=== PATIENT | female | born 1995 | race Caucasian/White ===

== ENCOUNTER 2022-07-16 11:33 | Outpatient (REF) | payer OTHER, SELFPAY ==
[2022-07-16 14:13] LABS: Alanine Aminotransferase 22 U/L (0-31); Albumin Level 4.2 g/dL (3.5-5.0); Alkaline Phosphatase 50 U/L (39-117); Anion Gap 13 (12-20); Aspartate Amino Transferase 20 U/L (5-31); Bilirubin Total 0.5 mg/dL (0.0-1.0); Blood Urea Nitrogen 10 mg/dL (9-16); Calcium 9.2 mg/dL (8.4-10.2); Carbon Dioxide 22 mmol/L (22-29); Chloride 107 mmol/L (96-108); Estimated Glomerular Filt Rate > 60; Glucose Random 85 mg/dL (60-115); Potassium 4.4 mmol/L (3.3-5.1); Sodium 138 mmol/L (135-145); Total Protein 6.8 g/dL (6.5-8.0)
[2022-07-16 14:45] LABS: Folate 4.2 ng/mL (> or = 4.0); TSH reflex Free T4 2.07 uIU/mL (0.32-4.0); Vitamin B12 361 pg/mL (200-900); Vitamin D 25-OH Total 10.1 ng/mL (>30)
== END 2022-07-16 11:34 | disposition home or self-care (01) ==
LOC: HO.LAB 11:33
PROVIDERS: PCP Internal Medicine; Visit Provider Nurse Practitioner Family
DX: Z13.21 Encounter for screening for nutritional disorder (principal); Z13.29 Encounter for screening for other suspected endocrine disorder
CPT/HCPCS: 36415; 80053; 82306; 82607; 82746; 84443

== ENCOUNTER 2022-08-06 14:31 | Emergency (ER) | payer OTHER, SELFPAY ==
--- NOTE | 2022-08-06 14:34 | ED.GENADULT ---
HPI - General Adult General Chief complaint: Anxiety <NICKI Lozoya - Last Filed: 08/06/22 15:02> Stated complaint: Numb hands/Lightheaded <NICKI Lozoya - Last Filed: 08/06/22 15:02> Time Seen by Provider: 08/06/22 15:41 <NICKI Lozoya - Last Filed: 08/06/22 15:02> History of Present Illness HPI narrative: patient with history of anxiety complains of anxiety attack that included episode of hyperventilation, tingling in fingertips feeling like her heart was racing, feeling lightheaded She feels somewhat better but still feels anxious, never had chest pain never fainted never had any weakness or difficulty speaking or walking <NICKI Hernández - Last Filed: 08/10/22 19:40> Related Data Home medications: Home Medications Medication Instructions Recorded Confirmed norethindrone acetate 1 mg-ethinyl 1 tab PO DAILY 07/16/22 07/16/22 estradiol 20 mcg tablet (Junel) Previous Rx's Medication Instructions Recorded buspirone 5 mg tablet 5 mg PO BID #60 tabs 07/16/22 cholecalciferol (vitamin D3) 50 50 mcg PO DAILY #30 caps 07/16/22 mcg (2,000 unit) capsule lorazepam 1 mg tablet (Ativan) 1 mg PO BID PRN anxiety #7 tabs 08/06/22 <NICKI Lozoya - Last Filed: 08/06/22 15:02> Allergies/adverse reactions: Allergies Allergy/AdvReac Type Severity Reaction Status Date / Time amoxicillin [AMOXICILLIN] Allergy Unknown UNKNOWN, Verified 07/16/22 11:07 rash <NICKI Lozoya - Last Filed: 08/06/22 15:02> PMF Past Medical History Source: nursing notes reviewed <NICKI Hernández - Last Filed: 08/10/22 19:40> Medical History: Medical History (Updated 08/06/22 @ 16:28 by NICKI Hernández) Anxiety Elevated blood-pressure reading without diagnosis of hypertension <NICKI Lozoya - Last Filed: 08/06/22 15:02> Family History Family History: Family History (Updated 07/16/22 @ 11:10 by PATRICIA Lord) Father Esophageal cancer Mother No problems noted. Sister Uterine fibroid <NICKI Lozoya - Last Filed: 08/06/22 15:02> Social History Social History: Social History (Updated 07/16/22 @ 11:11 by PATRICIA Lord) Household Members: Spouse Housing: Apartment Alcohol intake: current Alcohol intake frequency: a few times a month Alcohol type: hard liquor Patient Tobacco Use Status: Never used Tobacco Tobacco use type: Cigarette e-Cigarette/Vaping Use: Never Used Second Hand Smoke Exposure: No Advance Directives: No Advance Directives Information Provided: No service: No Current occupational status: employed <NICKI Lozoya - Last Filed: 08/06/22 15:02> Physical Exam ED Vital Signs: Vital Signs - 24 hr 08/06/22 14:59 Temperature 98 F Pulse Rate 98 Respiratory Rate 18 Blood Pressure 163/93 H Pulse Oximetry 98 Oxygen Delivery Method Room Air BMI result Body Mass Index 44.1 <NICKI Lozoya - Last Filed: 08/06/22 15:02> Vital Signs - 24 hr 08/06/22 14:59 Temperature 98 F Pulse Rate 98 Respiratory Rate 18 Blood Pressure 163/93 H Pulse Oximetry 98 Oxygen Delivery Method Room Air BMI result Body Mass Index 44.1 <NICKI Hernández - Last Filed: 08/10/22 19:40> General appearance no acute distress cooperative Head is normocephalic atraumatic Pupils equal round reactive to light extraocular motions are intact Pharynx clear without redness swelling or exudate membranes are moist Neck is supple The chest is clear to auscultation bilateral full symmetric equal breath sounds Heart no murmur rate and rhythm regular Abdomen soft nontender Extremities full range of motion x4 Neuro gait and balance are normal, interaction comprehension and expression are normal, cranial nerves 2-12 intact as tested no facial asymmetry, cerebellar exam is normal, motor is 5/5 x4 and sensation intact and symmetrical <NICKI Hernández - Last Filed: 08/10/22 19:40> Course Course Course Narrative: RME--27-year-old female with a past medical history of anxiety, presenting to the ED c/o panic attack x couples hours with assoc hand parathesias, SOB, CP, & lightheadedness. States took her BP at home and was 173/113. Reports sx improvement at present with mild residual lightheadedness Took Buspirone this AM, started about 1 mos ago EKG ordered <NICKI Lozoya - Last Filed: 08/06/22 15:02> RME--27-year-old female with a past medical history of anxiety, presenting to the ED c/o panic attack x couples hours with assoc hand parathesias, SOB, CP, & lightheadedness. States took her BP at home and was 173/113. Reports sx improvement at present with mild residual lightheadedness Took Buspirone this AM, started about 1 mos ago EKG ordered Patient with history of anxiety had an episode of hyperventilation and anxiety that is typical of prior, EKG was done which was a normal sinus rhythm, rate of 91, intervals AR interval normal QRS duration normal QT normal, there are no ST acute changes no acute ischemic changes Patient was given Ativan with very good improvement and felt better and was discharged, she has no suicidal homicidal thoughts, no hearing voices, after Ativan tingling palpitations all resolved <NICKI Hernández - Last Filed: 08/10/22 19:40> Medications Administered Discontinued Medications Generic Name Dose Route Start Last Admin Trade Name Freq PRN Reason Stop Dose Admin Lorazepam 1 mg 08/06/22 15:47 08/06/22 15:56 Lorazepam 1 Mg Tablet PO 08/06/22 15:48 1 mg ONCE ONE Administration <NICKI Lozoya Last Filed: 08/06/22 15:02> Medications Administered Discontinued Medications Generic Name Dose Route Start Last Admin Trade Name Freq PRN Reason Stop Dose Admin Lorazepam 1 mg 08/06/22 15:47 08/06/22 15:56 Lorazepam 1 Mg Tablet PO 08/06/22 15:48 1 mg ONCE ONE Administration <NICKI Hernández - Last Filed: 08/10/22 19:40> Discharge Plan Discharge Clinical Impression: Anxiety <NICKI Lozoya Last Filed: 08/06/22 15:02> Patient Disposition: Home, Self-Care <NICKI Lozoya Last Filed: 08/06/22 15:02> Additional Instructions: I wrote for a few Ativan tablets to be used if you develop another anxiety attack If you are hyperventilating and breathing fast, breathing too a pre per bag, and also try to make sure your excellent a shins are at least twice as long as inhalations so you can blow off carbon dioxide from her system Follow with her doctor Return any time any worse condition or any concerns <NICKI Lozoya - Last Filed: 08/06/22 15:02> Prescriptions: New lorazepam [Ativan] 1 mg tablet 1 mg PO BID PRN (Reason: anxiety) Qty: 7 0RF No Action cholecalciferol (vitamin D3) 50 mcg (2,000 unit) capsule 50 mcg PO DAILY Qty: 30 3RF norethindrone ac-eth estradiol [05/17 ()] 1-20 mg-mcg tablet 1 tab PO DAILY buspirone 5 mg tablet 5 mg PO BID Qty: 60 0RF <NICKI Lozoya - Last Filed: 08/06/22 15:02> Interventions: ED Discharge Assessment Last Done: 08/06/22 16:32 <NICKI Lozoya - Last Filed: 08/06/22 15:02> Discharge Date/Time: 08/06/22 16:33 <NICKI Lozoya - Last Filed: 08/06/22 15:02>
[2022-08-06 14:59] VITALS: BP 163/93; PULSE 98; RESP 18; TEMP 36.6; O2SAT 98; BMI 44.1
--- NOTE | 2022-08-06 15:01 | ECG_ITS ---
Test Reason : lightheaded Blood Pressure : / mmHG Vent. Rate : 091 BPM Atrial Rate : 091 BPM P-R Int : 138 ms QRS Dur : 084 ms QT Int : 368 ms P-R-T Axes : 043 067 024 degrees QTc Int : 452 ms Normal sinus rhythm Normal ECG No previous ECGs available Referred By: Dee Bazzi Electronically Signed By:CITLALI OLIVEROS MD
[2022-08-06] MEDS: LORazepam 1 MG TABLET PO (15:56)
== END 2022-08-06 16:33 | disposition home or self-care (01) ==
PROVIDERS: Emergency Provider Emergency Medicine; PCP Internal Medicine
DX: F41.1 Generalized anxiety disorder (principal); F43.0 Acute stress reaction; R42 Dizziness and giddiness; Z79.899 Other long term (current) drug therapy
CPT/HCPCS: 93005; 99283